=== PATIENT | female | born 1985 | race Caucasian/White ===

== ENCOUNTER 2017-12-06 01:13 | Emergency (ER) | payer MEDICAID ==
[~2017-12-06] VITALS: Ht 152.4 cm; Wt 63.5 kg
[2017-12-06 01:24] VITALS: Ht 152.4 cm; Wt 63.5 kg
[2017-12-06 03:29] VITALS: BP 122/85
== END 2017-12-06 03:30 | disposition home or self-care (01) ==
LOC: ED 01:13
DX: S82.892A Other fracture of left lower leg, initial encounter for closed fracture (principal); V80.010A Animal-rider injured by fall from or being thrown from horse in noncollision accident, initial encounter; Y93.89 Activity, other specified; Y92.89 Other specified places as the place of occurrence of the external cause; Y99.8 Other external cause status